=== PATIENT | male | born 1985 ===

== ENCOUNTER 2018-03-19 21:00 | Emergency (ER) | payer OTHER ==
[2018-03-19 21:17] VITALS: BP 137/103
[2018-03-19] MEDS ORDERED: Lidocaine 2% PF * 5 ML VIAL INJ ONE (21:51)
--- NOTE | 2018-03-19 21:56 | UC ---
Laceration HPI - HPI Summary HPI Summary: The patient is a 32-year-old male that lacerated his right palm about 8:30 today while wiping under a couch. Since he caught his hand on a nail. He is right handed. His last tetanus shot was 7 years ago. His pain was minimal. - History Of Current Complaint Chief Complaint: UCLaceration Stated Complaint: HAND LACERATION Time Seen by Provider: 03/19/18 21:45 Hx Obtained From: Patient Laceration Location: Hand Mechanism Of Injury: Sharp Trauma Onset/Duration: Sudden Onset Severity: Mild Pain Intensity: 1 Pain Scale Used: 0-10 Numeric Aggravating Factors: Position Hands: 1 - lac - Allergies/Home Medications Allergies/Adverse Reactions: Allergies Allergy/AdvReac Type Severity Reaction Status Date / Time No Known Allergies Allergy Verified 03/19/18 21:17 Home Medications: Home Medications Cetirizine* [ZyrTEC 10 MG TAB*] 10 mg PO DAILY 03/19/18 [History Confirmed 03/19] PMH/Surg Hx/FS Hx/Imm Hx Previously Healthy: Yes - Surgical History Surgical History: None - Family History Known Family History: Positive: Other - dad prostate CA, MGM ALS - Social History Alcohol Use: Weekly Substance Use Type: Marijuana Smoking Status (MU): Never Smoked Tobacco - Immunization History Most Recent Tetanus Shot: 2009 Review of Systems Constitutional: Negative Skin: Negative Eyes: Negative ENT: Negative Respiratory: Negative Cardiovascular: Negative Gastrointestinal: Negative Genitourinary: Negative Motor: Negative Neurovascular: Negative Musculoskeletal: Negative Neurological: Negative Psychological: Negative All Other Systems Reviewed And Are Negative: Yes Physical Exam Triage Information Reviewed: Yes Appearance: Well-Appearing, No Pain Distress, Well-Nourished Vital Signs: Initial Vital Signs Temp 98.7 F 03/19/18 21:14 Pulse 92 03/19/18 21:14 Resp 18 03/19/18 21:14 BP 137/103 03/19/18 21:14 Pulse Ox 100 03/19/18 21:14 Eye Exam: Normal ENT: Positive: Hearing grossly normal. Negative: Nasal congestion, Nasal drainage, Trismus, Muffled voice, Hoarse voice Neck: Positive: Supple Respiratory: Positive: Lungs clear, Normal breath sounds, No respiratory distress Cardiovascular: Positive: RRR, No Murmur Musculoskeletal: Positive: ROM Intact, No Edema Neurological: Positive: Alert Psychological Exam: Normal Skin Exam: Other - lac Laceration Repair - Laceration Repair 1 Description: Linear Laceration Size After Repair: Length (cm) - 2.0, Width (mm) - 3, Depth (mm) - 3 Modified For Repair: No Type Injection: Local Anesthesia Used: 2.0% Lido Cleansing Completed Via Routine Prep: Yes Irrigation With Pressure Irrigation Device: Yes Closure Material: Sutures Closure Method: Single Layer Suture Of: Skin Suture Type: Nylon - 7 4-0 nylon Laceration Course/Dx - Differential Dx - Laceration/Wound Provider Diagnoses: right hand laceration Discharge - Sign-Out/Discharge Documenting (check all that apply): Patient Departure All imaging exams completed and their final reports reviewed: No Studies - Discharge Plan Condition: Stable Disposition: HOME Patient Education Materials: Care For Your Stitches (ED) Referrals: Aayush Penn MD [Primary Care Provider] - Additional Instructions: starting tomorrow gently clean lac twice daily with soap and water dry apply thin film of ointment ( I like aquaphor healing ointment) apply dressing first 2-3 days after that you may keep it open to air periodically recheck for concerns of infection sutures out in 10-12 days - Billing Disposition and Condition Condition: STABLE Disposition: Home
== END 2018-03-19 22:35 | disposition home or self-care (01) ==
LOC: UCEAST 21:00
DX: S61.411A Laceration without foreign body of right hand, initial encounter (principal); W45.0XXA Nail entering through skin, initial encounter; Y93.E9 Activity, other interior property and clothing maintenance; Y92.008 Other place in unspecified non-institutional (private) residence as the place of occurrence of the external cause
CPT/HCPCS: 12001; 99201; G0463